=== PATIENT | male | born 1970 | race Caucasian/White ===

== ENCOUNTER 2022-01-17 11:30 | Outpatient (CLI) | payer BC | END 2022-01-17 11:31 | disposition home or self-care (01) | LOC: CSHWCC 11:30 | PROVIDERS: ATTEND Nurse Practitioner Family | DX: H91.22 Sudden idiopathic hearing loss, left ear (principal) | CPT/HCPCS: 99203; G0463 ==

== ENCOUNTER 2022-01-20 12:50 | Outpatient (CLI) | payer BC | END 2022-01-20 12:51 | disposition home or self-care (01) | LOC: CSHLAB 12:50 | PROVIDERS: ATTEND Nurse Practitioner Family | DX: Z01.818 Encounter for other preprocedural examination (principal); H91.22 Sudden idiopathic hearing loss, left ear | CPT/HCPCS: 71046 ==

== ENCOUNTER 2022-01-24 08:05 | Outpatient (CLI) | payer BC | END 2022-01-24 08:06 | disposition home or self-care (01) | LOC: CSHWCC 08:05 | PROVIDERS: ATTEND Nurse Practitioner Family | DX: H91.22 Sudden idiopathic hearing loss, left ear (principal) | CPT/HCPCS: G0277 ==

== ENCOUNTER 2022-01-25 08:09 | Outpatient (CLI) | payer BC | END 2022-01-25 08:10 | disposition home or self-care (01) | LOC: CSHWCC 08:09 | PROVIDERS: ATTEND Nurse Practitioner Family | DX: H91.22 Sudden idiopathic hearing loss, left ear (principal) ==

== ENCOUNTER 2022-01-26 08:15 | Outpatient (CLI) | payer BC | END 2022-01-26 08:16 | disposition home or self-care (01) | LOC: CSHWCC 08:15 | PROVIDERS: ATTEND Nurse Practitioner Family | DX: H91.22 Sudden idiopathic hearing loss, left ear (principal) | CPT/HCPCS: G0277 ==

== ENCOUNTER 2022-01-30 08:15 | Outpatient (CLI) | payer BC | END 2022-01-30 08:16 | disposition home or self-care (01) | LOC: CSHWCC 08:15 | PROVIDERS: ATTEND Nurse Practitioner Family | DX: H91.22 Sudden idiopathic hearing loss, left ear (principal) | CPT/HCPCS: G0277 ==

== ENCOUNTER 2022-01-31 08:07 | Outpatient (CLI) | payer BC | END 2022-01-31 08:08 | disposition home or self-care (01) | LOC: CSHWCC 08:07 | PROVIDERS: ATTEND Nurse Practitioner Family | DX: H91.22 Sudden idiopathic hearing loss, left ear (principal) ==

== ENCOUNTER 2022-02-01 08:05 | Outpatient (CLI) | payer BC | END 2022-02-01 08:06 | disposition home or self-care (01) | LOC: CSHWCC 08:05 | PROVIDERS: ATTEND Nurse Practitioner Family | DX: H91.22 Sudden idiopathic hearing loss, left ear (principal) ==

== ENCOUNTER 2022-02-02 08:10 | Outpatient (CLI) | payer BC | END 2022-02-02 08:11 | disposition home or self-care (01) | LOC: CSHWCC 08:10 | PROVIDERS: ATTEND Nurse Practitioner Family | DX: H91.22 Sudden idiopathic hearing loss, left ear (principal) | CPT/HCPCS: G0277 ==

== ENCOUNTER 2022-02-07 08:08 | Outpatient (CLI) | payer BC | END 2022-02-07 08:09 | disposition home or self-care (01) | LOC: CSHWCC 08:08 | PROVIDERS: ATTEND Nurse Practitioner Family | DX: H91.22 Sudden idiopathic hearing loss, left ear (principal) | CPT/HCPCS: G0277 ==